=== PATIENT | male | born 1945 | race Caucasian/White ===

== ENCOUNTER 2021-05-25 20:49 | Emergency (ER) | payer MEDICARE, SELFPAY ==
--- NOTE | ~2021-05-25 | XR_ITS ---
EXAMINATION: XR chest 1V portable EXAM DATE: 05/25/2021 21:39 INDICATION: altered mental status . TECHNIQUE: Portable AP frontal chest x-ray was obtained. Comparison is made to prior examination from 2005. FINDINGS: There is approximately 6 cm right lung mass, could be patient's known lung cancer given the right-sided Chemo-Port. If patient is being treated for some other type of cancer, this could be a m etastatic lesion, or could be round pneumonia. Please clinically correlate. There is moderate sliding gastroesophageal hiatal hernia. Left lung is clear. Chronic right hemidiaph ragm elevation could indicate paralysis. No pneumothorax or pleural effusion. There are mild bony deg enerative changes. IMPRESSION: 1. Right lung mass, clinical correlation. 2. Possible right hemidiaphragm paralysis. 3. Moderate hiatal hernia. Reviewed, dictated and finalized at [facility].
--- NOTE | ~2021-05-25 | CT_ITS ---
EXAMINATION: CTA chest PE abdomen pel DATE: 05/26/2021 00:00 INDICATION: Chest pain. Shortness of breath. TECHNIQUE: Computed tomography angiography (CTA) of the chest, abdomen and pelvis was performed with 100 mL Omnipaque-350 intravenous contrast timed to evaluate the pulmonary arteries. Coronal maximum i ntensity projection 3D-reconstructions were created by the technologist. Automated exposure control a nd iterative reconstruction technique were employed. Exam dose: 1475.58 mGy-cm total exam DLP. COMPARISON: 05/21/2021 portable AP chest FINDINGS: Right Port-A-Cath catheter. There is diagnostic contrast enhancement of the pulmonary arteries and no apparent pulmonary embolism . Up to 7.3 x 7.1 x 5.8 cm right upper lobe lung mass is noted, with right hilar, subcarinal, right par atracheal superior mediastinal metastatic lymphadenopathy. There are extensive hepatic metastases. There is hepatomegaly. No thoracic aortic aneurysm or dissection. Normal heart size. No pericardial or pleural effusion. Moderately large hiatal hernia. Status post cholecystectomy. Calcified splenic granulomas. Normal splenic size. No pancreatic mass lesion, calcification or ductal dilatation. No bile duct dilatation is evident. Normal morphology of the adrenal glands. There are multiple hypoenhancing or nonenhancing right renal lesions including probable cyst. Wedge-shaped peripheral hypoenhancing approximately 13 mm lesion along the posterior mid kidney is no nspecific, might represent an infarct, complicated cyst or less likely renal neoplasm. Similar but sm aller approximately 8 mm posteromedial mid to upper right renal lesion shares similar differential di agnosis. Probable 9 mm left renal cyst. Approximately 3.5 mm nonobstructing right renal calculus and 6.5 mm nonobstructing left renal calculu s. No ureteral calculus or hydroureteronephrosis. The urinary bladder is unremarkable. There is promi nent prostate enlargement and mild prostate calcification. Small bilateral fat-containing inguinal hernias. There is a prominent amount of fecal material within the colon. No bowel obstruction, bowel wall thic kening, pneumatosis or intraperitoneal free air is detected. There is calcification of the abdominal aorta and prominent calcification at the origin of the right renal artery. No abdominal aortic aneurysm. No intraperitoneal or retroperitoneal or pelvic mass lesi on or adenopathy or ascites. Degenerative changes of the lower cervical spine, thoracic and lumbar spine. There is grade 1 anterolisthesis at L4-5 due to degenerative changes apophyseal joints. No suspicious osteolytic or osteoblastic lesions. IMPRESSION: Large right upper lobe pulmonary malignancy with right hilar and mediastinal metastatic lymphadenopathy and extensive hepatic metastases No apparent pulmonary malignancy Nonobstructive bilateral nephrolithiasis Right renal lesions including cysts; possible right cortical renal infarcts Reviewed, dictated and finalized at [facility]. Reviewed, dictated and finalized at [facility]. IMPRESSION: Large right upper lobe pulmonary malignancy with right hilar and m ediastinal metastatic lymphadenopathy and extensive hepatic metastases No apparent pulmonary malignancy Nonobstructive bilateral nephrolithiasis Right renal lesions including cysts; possible right cortical renal infarcts
--- NOTE | ~2021-05-25 | CT_ITS ---
EXAMINATION: CT brain wo con EXAM DATE: 05/25/2021 22:13 INDICATION: Confusion, history of brain tumor. TECHNIQUE: Spiral CT of the head was performed without contrast. Axial, coronal and sagittal images were reviewed. The dose-length product (DLP) for this examination was 681.00 mGy-cm. The exposure w as tailored according to patient size, and iterative reconstruction (ASIR) was used as additional dos e reduction technique. There is no prior study for comparison. FINDINGS: Hyperdense mass at the left vertex, contiguous to both the frontal cortex and also the falx , but without dural tails as would be expected for a meningioma. Appears to be most likely cortical b ased brain mass, measures 1.2 cm. Reportedly patient has known history of brain tumor. There is no acute intraparenchymal hemorrhage. No evidence of acute infarction. There is no mass ef fect or midline shift. The ventricles are normal in size. There are no extra-axial collections. Th ere are no acute calvarial fractures. Patient has had bilateral ocular lens surgery. There is mild ce rebral atrophy. Soft tissue is unremarkable. The visualized sinuses and mastoid air cells are well a erated. IMPRESSION: 1. No acute intracranial findings. 2. Mass at left vertex suspected more likely cortical based than dural. Reviewed, dictated and finalized at location [facility].
[2021-05-25 20:51] VITALS: BP 132/67; PULSE 90; RESP 20; TEMP 38.1; O2SAT 99
--- NOTE | 2021-05-25 21:27 | ECG_ITS ---
Measurements Intervals [place] Rate: 133 P: 44 MI: 138 QRS: -76 QRSD: 126 T: 61 QT: 282 QTc: 419 Interpretive Statements SINUS TACHYCARDIA RIGHT BUNDLE BRANCH BLOCK LEFT ANTERIOR FASCICULAR BLOCK BASELINE ARTIFACT- I, III, AVL ABNORMAL ECG Electronically Signed On 05-26-2021 6:41:43 CDT by Oscar Estrada D.O.
[2021-05-25 21:39] LABS: Add Urine Microscopic? NO; Appearance Urine Clear (Clear); Bilirubin Urine Negative (Negative); Blood Urine Negative (Negative); Color Urine Yellow (Yellow); Glucose Urine UA Negative (Negative); Ketones Urine Negative (Negative); Leukocyte Esterase Ur Negative LEU/UL (Negative); Nitrate Urine Negative (Negative); Protein Urine Negative (Negative); Specific Grav Ur 1.018 (1.001-1.035); Urobilinogen Urine Negative mg/dL (<2.0)
--- NOTE | 2021-05-25 21:52 | ED.AMS ---
HPI - Altered Mental Status General Chief Complaint: Altered Mental Status Stated Complaint: AMS Time Seen by Provider: 05/25/21 21:03 Source: family and RN notes reviewed Mode of arrival: EMS Limitations: altered mental status History of Present Illness HPI narrative: This is a 76 year old male with metastatic lung cancer who presents for evaluation of altered mental status. She states yesterday pain was doing well at the doctor's office. She does states he was hallucinating in the physician's office yesterday. Today she states patient has worsening confusion. She states she is unable to understand what he is saying. He is seeing things that are not there. He started chemotherapy on for lung cancer with metastatic disease to Brain, bone and liver. She states he is taking steroids but they are tapering his dose. She also states he underwent Gamma knife therapy 3-4 weeks ago at [facility]. His oncologist is located at [facility], [place]. Patient is unable to given any history . He was found to have low grade fever in triage. Related Data Allergies Allergy/AdvReac Type Severity Reaction Status Date / Time No Known Allergies Allergy Mild Verified 05/25/21 21:00 Review of Systems Review of Systems: ROS unobtainable: Yes unobtainable due to mental status PMFSH Past Medical History Medical History (Updated 05/26/21 @ 08:33 by Brianna Hatfield MD) Hyperlipidemia Hypertension Port-A-Cath in place Status post gamma knife treatment Social History Social History (Updated 05/25/21 @ 21:53 by Brianna Hatfield MD) Smoking status: Never smoker Gender identity (if verbalized by the patient): Male Exam Const: General: alert Other: agitated HENMT: Other: right lip lesion Eyes: Pupils: Equal, round and reactive pupils present EOM: EOMs intact bilaterally Resp: Effort & Inspection: normal respiratory effort and no retractions Auscultation: clear to auscultation bilaterally Cardio: Rate: tachycardic Rhythm: regular rhythm Heart sounds: no murmurs GI: GI Palp: Yes Soft to palpation, No Tenderness to palpation present (GI) and No Guarding due to palpation present (GI) Auscultation: normal bowel sounds Skin: General skin exam: normal color Rashes: no rashes Neuro: General: moves all extremities Psych: Affect: Anxious affect present Course Reevaluation(s) Reevaluation #1: I have discussed with patient's patient labs and imaging. He is quite confused which is likely progression of his disease. She agrees with transfer to [facility] for continuity of care and given patient with brain mets. She understands patient' poor prognosis. Date: 05/26/21 Time: 01:00 Reevaluation #2: Patient is calm now. She states she has talked to family and they would like patient to be DNR, DNI. Date: 05/26/21 Time: 03:30 Consultations Consultation #1: I spoke with DR. Presley of [facility]. He accepts patient to the floor. He agrees with rapid covid test and antibiotics due to leukocytosis and feve.r Date: 05/26/21 Time: 01:31 Vital Signs Vital signs: Vital Signs Temperature 100.5 F H 05/25/21 20:51 Pulse Rate 90 05/25/21 20:51 Respiratory Rate 20 05/25/21 20:51 Blood Pressure 132/67 05/25/21 20:51 Pulse Oximetry 99 05/25/21 20:51 Temperature 100.5 F H 05/25/21 20:51 Pulse Rate 110 H 05/26/21 06:52 Respiratory Rate 28 H 05/26/21 06:52 Blood Pressure 156/78 H 05/26/21 06:52 Pulse Oximetry 100 05/26/21 06:52 MDM - Altered Mental Status Lab Data Attestation: I reviewed the patient's lab results. Result diagrams: 05/25/21 22:55 05/25/21 22:55 Labs: Lab Results 05/25/21 05/25/21 05/25/21 Range/Units 21:32 22:55 22:55 WBC 22.8 H (4.5-10.0) K/mm3 RBC 3.64 L (4.6-6.20) M/mm3 Hgb 9.7 L (14.0-18.0) g/dL Hct 30.6 L (42.0-52.0) % MCV 84.1 (80-100) fl MCH 26.6 (26-34) pg MCHC 31.7 L (32-36) g/dl RDW
[2021-05-25] MEDS: SODIUM CHLORIDE 0.9% IV 1,000 ML 999 ML IV CONT (22:46)
[2021-05-25] MEDS: LORazepam INJ (*CRX) 2 MG/ML VIAL 0.5 MG IV PUSH (22:56)
[2021-05-25 23:07] LABS: Basophils Percent Auto 0.2 % (0.2-1.2); Eosinophils Percent Auto 0.1 % (0-4.4); Hematocrit 30.6 % (42.0-52.0); Hemoglobin 9.7 g/dL (14.0-18.0); Immature Granulocyte Absolute 0.31 K/mm3 (0.00-0.031); Immature Granulocyte Percent A 1.4 % (0-0.5); Lymphocytes Absolute Auto 0.98 K/mm3 (0.9-3.2); Lymphocytes Percent Auto 4.3 % (18.3-44.2); Mean Corpuscular HGB Conc 31.7 g/dl (32-36); Mean Corpuscular Hemoglobin 26.6 pg (26-34); Mean Corpuscular Volume 84.1 fl (80-100); Mean Platelet Volume 9.5 fl (7.4-10.4); Monocytes Absolute Auto 0.3 K/mm3 (0.1-0.6); Monocytes Percent Auto 1.4 % (2.6-8.5); Neutrophils Absolute Auto 21.1 K/mm3 (1.3-6.7); Neutrophils Percent Auto 92.6 % (45.5-73.1); Platelet Count Result 296 k/mm3 (150-375); Red Blood Count 3.64 M/mm3 (4.6-6.20); Red Cell Distribution Width 16.8 % (11.5-14.5); White Blood Count 22.8 K/mm3 (4.5-10.0)
[2021-05-25 23:16] LABS: INR 1.1; Prothrombin Time 13.9 Seconds (11.1-14.7)
[2021-05-25 23:17] LABS: Partial Thromboplastin Time 28.9 SECONDS (22.3-36.8)
[2021-05-25 23:22] LABS: Alanine Aminotransferase 39 U/L (4-50); Albumin Level 2.7 g/dL (3.5-5.1); Alkaline Phosphatase 168 U/L (38-126); Anion Gap 5 mmol/L (8-16); Aspartate Amino Transferase 48 U/L (17-59); Bilirubin,Total 0.4 mg/dL (0.2-1.3); Blood Urea Nitrogen 23 mg/dL (9-20); Calcium 8.5 mg/dL (8.4-10.2); Carbon Dioxide 31 mmol/L (22-30); Chloride 93 mmol/L (98-107); Estimated CRCL calculation 80 ml/min; Estimated Glomerular Filt Rate > 60; Glucose 78 mg/dL (65-110); Lactic Acid Reflex 2.5 mmol/L (0.7-2.1); Potassium 4.4 mmol/L (3.4-5.0); Sodium 129 mmol/L (137-145)
[2021-05-25 23:36] LABS: Troponin I 0.098 ng/mL (0.000-0.034)
[2021-05-26] VITALS (34 sets, daily range): BP systolic 100–156; BP diastolic 51–88; PULSE 83–110; RESP 15–40; O2SAT 100
[2021-05-26 00:38] LABS: pH ABG 7.384 (7.350-7.450)
[2021-05-26 00:39] LABS: Alveolar/Arterial O2 Gradient 77.3 mmHg; Base Excess ABG 3.3 mEq/l (+/-2.0); HCO3 ABG 29.1 mEq/l (22.0-26.0); Oxygen Content ABG 14.8 %vol (16.0-22.0); Oxygen Saturation ABG 96.9 % (95.0-100.0); PCO2 ABG 49.8 mmHg (35.0-45.0); PO2 ABG 92.6 mmHg (80.0-100.0); Total Hemoglobin 10.9 g/dL (12.0-18.0)
[2021-05-26 00:40] LABS: Carboxyhemoglobin 0.3 % THb (0-2.0); Fractional Inspired Oxygen 32 %; Methemoglobin ABG 0.5 %THb (0-1.5); Modified Allen's Test Pass; Oxyhemoglobin 95.6 % THb (90.0-100.0); PO2 FiO2 Ratio Arterial Blood 2.89 %; Reduced Hemoglobin 3.6 %THb (0-5.0); Site Drawn RIGHT RADIAL
[2021-05-26 00:41] LABS: Device NASAL CANNULA
[2021-05-26] MEDS: SODIUM CHLORIDE 0.9% IV 1,000 ML 999 ML IV CONT (00:42)
[2021-05-26 02:04] LABS: Reflex Lactic Acid Yes or No Add Lactic
[2021-05-26 02:44] LABS: Lactic Acid 1.9 mmol/L (0.7-2.1)
[2021-05-26 02:56] LABS: EDCOVIDSCREEN Negative (Negative)
[2021-05-26] MEDS: LORazepam INJ (*CRX) 2 MG/ML VIAL 0.5 MG IV PUSH (05:14)
== END 2021-05-26 07:01 | disposition short-term general hospital (02) ==
PROVIDERS: Emergency Provider General Practice
DX: R41.82 Altered mental status, unspecified (principal); C34.90 Malignant neoplasm of unspecified part of unspecified bronchus or lung; C78.7 Secondary malignant neoplasm of liver and intrahepatic bile duct; C79.31 Secondary malignant neoplasm of brain; C79.51 Secondary malignant neoplasm of bone; R65.10 Systemic inflammatory response syndrome (SIRS) of non-infectious origin without acute organ dysfunction; E78.5 Hyperlipidemia, unspecified; I10 Essential (primary) hypertension; K44.9 Diaphragmatic hernia without obstruction or gangrene; Z20.822 Contact with and (suspected) exposure to COVID-19
CPT/HCPCS: 36415; 36600; 70450; 71045; 71275; 74177; 80053; 81003; 82375; 82805; 83050; 83605; 84443; 84484; 85025; 85610; 85730; 87040; 87426; 93005; 96361; 96365; 96367; 96375; 96376; 99285; C9803; J0131; J0692; J2060; J3370; J7030; Q9967